=== PATIENT | female | born 1945 | race Caucasian/White ===

== ENCOUNTER → 2016-11-02 | Outpatient (CLI) | payer OTHER ==
[~2016-11-02] MED LIST: ATENOLOL PO; CALCIUM PO; CELEXA PO; SYNTHROID PO; TRAMADOL HCL50 MG PO; [UNRECOGNIZED DRUG - OTHER] PO
[2016-11-02 10:36] LABS: BASO # 0.1 10*3/uL (0.0-0.1); BASO % 0.7 % (0.0-1.0); EOS # 0.2 10*3/uL (0.0-0.4); EOS % 2.3 % (1.0-4.0); HEMATOCRIT 41.8 % (37.0-47.0); LYMPH # 3.5 10*3/uL (1.3-4.4); LYMPH % 34.2 % (27.0-41.0); MEAN CELL VOLUME 91.1 fl (81.0-99.0); MEAN CORPUSCULAR HGB 30.5 pg (27.0-31.0); MEAN CORPUSCULAR HGB CONC 33.5 g/dl (33.0-37.0); MEAN PLATELET VOLUME 8.8 fl (9.6-12.3); MONO # 0.9 10*3/uL (0.1-1.0); MONO % 8.9 % (3.0-9.0); NEUT # 5.5 10*3/uL (2.3-7.9); NEUT % 53.6 % (47.0-73.0); PLATELET COUNT AUTOMATED 265 10*3/uL (130-400); RED BLOOD COUNT 4.59 10*6/uL (4.10-5.10); RED CELL DISTRI WIDTH 12.9 % (0-14.5); WHITE BLOOD COUNT 10.3 10*3/uL (4.8-10.8)
[2016-11-02 11:10] LABS: FREE T4 1.06 ng/dl (0.76-1.46); THYROID STIM HORMONE (HS) 2.01 uIU/ml (0.358-4.75)
== END | disposition home or self-care (01) ==
LOC: LAB 09:10 → MAMMO 09:30
PROVIDERS: Family Medicine
DX: Z12.31 Encounter for screening mammogram for malignant neoplasm of breast (principal); E03.9 Hypothyroidism, unspecified; E55.9 Vitamin D deficiency, unspecified; D72.829 Elevated white blood cell count, unspecified

== ENCOUNTER → 2016-12-21 | Outpatient (CLI) | payer OTHER ==
[2016-12-21 09:16] LABS: ALBUMIN 3.6 gm/dl (3.1-4.5); ALKALINE PHOSPHATASE 73 U/L (45-117); BILIRUBIN, TOTAL 0.3 mg/dl (0.2-1.0); BUN 13 mg/dl (7-24); CARBON DIOXIDE 29 mmol/L (21-32); CHLORIDE 106 mmol/L (98-107); CHOLESTEROL 201 mg/dL (<200); CPK 114 U/L (26-192); EST GLOM FILT AFRICAN AMERICAN > 60 ml/min; FREE T4 0.81 ng/dl (0.76-1.46); GLUCOSE 111 mg/dL (65-99); HDL CHOLESTEROL 82 mg/dl (40-60); LDL CHOLESTEROL 85 mg/dL (9-159); POTASSIUM 4.1 mmol/L (3.5-5.1); SGOT/AST 19 IU/L (3-35); SGPT/ALT 32 U/L (12-78); SODIUM 144 mmol/L (136-145); TOTAL PROTEIN 7.7 gm/dL (6.4-8.2); TRIGLYCERIDES 172 mg/dl (<150); VLDL CHOLESTEROL 34 mg/dL (6-40)
== END | disposition home or self-care (01) ==
LOC: LAB 08:16
PROVIDERS: Family Medicine
DX: E78.00 Pure hypercholesterolemia, unspecified (principal); E03.9 Hypothyroidism, unspecified

== ENCOUNTER 2017-02-11 08:50 | Inpatient (IN) | payer OTHER ==
[~2017-02-11] VITALS: Ht 154.9 cm; Wt 76.2 kg
--- NOTE | ~2017-02-11 | PR ---
[place], [place] PROGRESS NOTE NAME: OSWALDO TAN [facility] #: [id number] UNIT #: [id number] ROOM: 412 DOCTOR: MOUSTAPHA TRAN MD BIRTHDATE: [birth year] DOS: SUBJECTIVE: The patient feels a lot better after the bronchoscopy. She is able to breathe better, does not have the chest tightness anymore. She still has a continued cough. OBJECTIVE: VITAL SIGNS: Blood pressure is 156/57, pulse of 76, respirations 20, temperature 98.0. LUNGS: Diminished breath sounds. A few scattered wheezes and rales heard, but much improved since yesterday. HEART: Regular. ABDOMEN: Obese, soft. EXTREMITIES: Without any edema. ASSESSMENT AND PLAN: 1. Severe persistent bronchial asthma, moderate to severe with acute exacerbation. 2. 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 3. Bronchoscopy for acute tracheobronchitis. Bronch cultures are pending. The patient is overall stable and is continuing to improve and I am hoping to discharge her over the next day or 2. We will order nebulizer for home usage. MOUSTAPHA TRAN MD CM:PNTRANS [phone] MOUSTAPHA TRAN MD 02/15/17 0033 interface
--- NOTE | ~2017-02-11 | PR ---
[place], [place] PROGRESS NOTE NAME: OSWALDO TAN [facility] #: [id number] UNIT #: [id number] ROOM: 412 DOCTOR: CHELE MONTAÑO MD,MEGHANA BIRTHDATE: [birth year] DOS: 02/15/2017 SUBJECTIVE: She has been still noted chest congestion, coughing, the resolution of the symptoms have been noted incomplete. Denies symptoms of hemoptysis. OBJECTIVE: VITAL SIGNS: For the patient which were recorded shows temperature normal, respiratory rate 20, heart rate 77, blood pressure 146/65. Pulse oxygen saturation on room air 94% saturation. HEENT: No acute change. NECK: Supple. CARDIOVASCULAR: S1, S2 audible. LUNGS: The patient was noted with expiratory wheezing was noted mild to moderately, but decreased from previous examinations gradually. ABDOMEN: Soft, nontender. LABORATORY DATA: Cultures of the bronchial washing showed light growth of yeast and normal wandy. IMPRESSION: Gradual, but slow resolution of acute exacerbation of bronchial asthma was continued. The respiratory symptoms have been improving, but not significant resolved for the patient enough at this time for home discharge on oral medications. OF TREATMENT: The patient will be recommended continued corticosteroids, bronchodilators for another 24-48 hours with close monitoring and assessment. The wheezing of patient improved. The coughing, shortness of breath, all improved. She could be switched to the oral antibiotics for the patient as well as the tapering dose of prednisone and discharge home over the weekend. MEGHANA ELAINE MD CM:PNTRANS [id number] MEGHANA MONTAÑO MD 02/16/17 0430 interface
--- NOTE | ~2017-02-11 | PR ---
[place], [place] PROGRESS NOTE NAME: OSWALDO TAN UNIT #: [id number] ROOM: 412 DOCTOR: MEGHANA CENTENO MD BIRTHDATE: [birth year] DOS: 02/13/2017 PULMONARY FOLLOWUP SUBJECTIVE: She was n.p.o. past midnight for bronchoscopy, noted severe episodic cough, remains unchanged. The wheezing of the patient was also noted shortness of breath as well. Denies symptoms of chest pain. Continue corticosteroids, bronchodilators and other treatments. OBJECTIVE: VITAL SIGNS: For the patient which were recorded showed the temperature noted as normal, respiratory rate 22, heart rate of 95-110, blood pressure 117/54-113/47. Pulse oxygen saturation of the patient recorded on 3 liters nasal cannula was 93% saturation. HEENT: Showed no new change. NECK: Supple. CARDIOVASCULAR SYSTEM: S1, S2 audible. LUNGS: The patient was noted with diffuse expiratory wheezing without any crackles. ABDOMEN: Soft, nontender. LABORATORY DATA: Blood cultures from 8th of this month for this patient, which were done for this patient, 4 sets for the patient was noted all negative. No bacterial growth rather. IMPRESSION: 1. The patient with acute exacerbation of uncomplicated moderate severe persistent bronchial asthma, moderate persistent bronchial asthma. 2. Acute severe tracheobronchitis. 3. Pulmonary nodules. 4. Persistent symptoms of cough, wheezing, now resolving with the current medical treatment. PLAN OF TREATMENT: Proceed with the bronchoscopy of the patient as planned. No other changes in treatment at this time immediately will be needed. Any treatment changes of the patient modification necessary will be done after the bronchoscopy. [place], [place] PROGRESS NOTE NAME: OSWALDO TAN UNIT #: [id number] ROOM: 412 DOCTOR: MEGHANA CENTENO MD BIRTHDATE: [birth year] MEGHANA ELAINE MD CM:PNTRANS [phone] MEGHANA MONTAÑO MD 02/14/17 0647 interface
--- NOTE | ~2017-02-11 | PR ---
[place], [place] PROGRESS NOTE NAME: OSWALDO TAN [facility] #: [id number] UNIT #: [id number] ROOM: 412 DOCTOR: MOUSTAPHA TRAN MD BIRTHDATE: [birth year] DOS: 02/13/2017 SUBJECTIVE: The patient is continuing to have shortness of breath and continues to cough and has not had any improvement at all. OBJECTIVE: VITAL SIGNS: Graphic trend shows that the patient is afebrile. Blood pressure is 144/56, pulse of 75, respirations 18, temperature 97.6. LUNGS: Diminished breath sounds, scattered wheezes. HEART: Regular. ABDOMEN: Obese, soft. EXTREMITIES: Without any edema. DIAGNOSTIC DATA: CT of the chest shows reticulonodular densities bilateral. ASSESSMENT AND PLAN: 1. Acute bronchitis, on IV antibiotics. 2. Bronchial asthma with acute exacerbation, continues to have significant bronchospasm on high dose of steroids. We will add Singulair. Dr. Dasilva plans to do a bronchoscopy today. 3. Possible interstitial lung disease as noted on a CT scan of the chest with possible pneumonia of the left lower lobe. 4. Benign hypertension, controlled with a normal echocardiogram. 5. Hypothyroidism, stable. Appreciate Dr. Dasilva's input. Discussed with the patient in detail. MOUSTAPHA TRAN MD CM:PNTRANS [phone] MOUSTAPHA TRAN MD 02/13/17 0730 interface
--- NOTE | ~2017-02-11 | CON ---
[place], [place] REPORT OF CONSULTATION NAME: OSWALDO TAN [facility] #: [id number] UNIT #: [id number] ROOM: 412 DOCTOR: MEGHANA CENTENO MD BIRTHDATE: [birth year] DOS: 02/12/2017 PULMONARY CONSULTATION EVALUATION AND MANAGEMENT NOTE The consultation requested by Dr. Susana Pineda. REASON FOR CONSULTATION: Assess the patient for ongoing abnormal respiratory symptoms. HISTORY OF PRESENT ILLNESS: A 71 years old white female known to me from the past, history of uncomplicated moderate persistent bronchial asthma, stable pulmonary nodule from the office. The patient presented to the Emergency Room for this patient and admitted to the hospital on 02/11/2017. The patient stated her symptoms started for this patient about a week ago or so. The symptoms worsened progressively for the patient in the last couple of days. The patient presented to the Emergency Room and was admitted to the hospital in February 2017. She started with having progressive chest congestion with cough. She was noted with symptoms of wheezing as well with increased shortness of breath, which occurred with mild exertional activity. She has been taking her usual prescription medications and not noted any relief of her symptoms. She has been admitted to the hospital for the patient for the medical management of acute severe exacerbation of bronchial asthma with acute bronchitis. The patient was also noted with increase of lactic acid on admission as well. The patient was seen in the office of the primary care physician, Dr. Santos and was asked to go to the hospital for the patient for hospitalization after his assessment because of the acute exacerbation of bronchial asthma appeared to be severe. REVIEW OF SYSTEMS: CONSTITUTIONAL SYMPTOMS: Noted with symptoms of fatigue and tiredness without any symptoms of fever or chills. EYES: Denies any burning, redness, or tenderness. EARS, NOSE, THROAT SYMPTOMS: No sore throat, hoarseness, otalgia, postnasal drainage. CARDIOVASCULAR SYSTEM: Denies anginal pain, edema or pain of the lower extremities. GASTROINTESTINAL SYMPTOMS: Denies dysphagia, nausea, vomiting, diarrhea, abdominal pain, hematemesis, melena, or hematochezia. GENITOURINARY SYMPTOMS: Denies dysuria, suprapubic pain, hematuria. MUSCULOSKELETAL SYMPTOMS: Denies acute joint pain, redness, or tenderness. SKIN: No lesions or rashes. CENTRAL NERVOUS SYSTEM: Denies any dizziness, headache, diplopia or syncopal episodes. Remaining systems were reviewed with the patient, they were noted all negative. PAST MEDICAL HISTORY: 1. Noted is essential hypertension. 2. History of uncomplicated moderate persistent bronchial asthma. [place], [place] REPORT OF CONSULTATION NAME: OSWALDO TAN UNIT #: [id number] ROOM: [facility] DOCTOR: MEGHANA CENTENO MD BIRTHDATE: [birth year] 3. 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 4. History of bilateral pulmonary nodules as well. 5. History of hypercholesterolemia. 6. History of hypothyroidism. 7. Generalized anxiety and depression. SOCIAL HISTORY: The patient is currently , has 2 children. Smoking noted since age of [age] years old, 1 pack of cigarettes per day until 1996. There was no history of occupation related pulmonary exposure. PAST SURGICAL HISTORY: Was noted, 1. Complete hysterectomy, 1973. 2. Carpal tunnel release bilateral for the patient. 3. Right rotator cuff surgery. 4. Partial thyroidectomy. FAMILY HISTORY: The patient's father for this patient at the age of 8484 years old, complication of prostate cancer. Mother at the age of 6262 years old from complications of uterine cancer. HOME MEDICATIONS: Noted use of Asmanex, ProAir HFA inhaler, citalopram, levothyroxine, atenolol. DRUG ALLERGY HISTORY: THE PATIENT WAS KNOWN ALLERGIES TO THE IVP DYE. PHYSICAL EXAMINATION: GENERAL: A 71 years old white female was noted excessive severe coughing for this patient several times for the patient during the assessment today. VITAL SIGNS: The height of the patient noted 5 feet 1 inch, weight of 168 pounds, BMI 31.7. The vital signs showed normal temperature, respiratory rate 18-22, heart rate of 120-81, blood pressure 160/77-181/75, pulse oxygen saturation on room air was 92% saturation. HEENT: Examination shows head was atraumatic. Eyes nonicterus. NECK: Supple. CARDIOVASCULAR SYSTEM: S1, S2 is audible. LUNGS: The patient was noted with moderate reduction of the breath sounds bilaterally with the diffuse expiratory wheezing. There were no crackles. ABDOMEN: Soft, nontender and flat. EXTREMITIES: Showed no edema, clubbing, cyanosis. CENTRAL NERVOUS SYSTEM: Cranial nerves 2-12 intact. No focal deficits. MUSCULOSKELETAL SYMPTOMS: No deformities. SKIN: No lesions or rashes. LABORATORY DATA: PT, PTT for the patient was noted as normal. Lactic acid noted 2.2 on admission, later noted 4.4. The CBC of the patient yesterday on admission, WBC count 15,000 with the remaining CBC normal. PT/PTT for the patient on 02/11/2017 was normal. CMP of the patient on 02/11/2017, BUN 18, creatinine 1.09. Lipase mildly elevated 417. ProBNP minimally elevated. CK-MB and troponin for the patient's first set noted normal yesterday. Chest x-ray of [place], [place] REPORT OF CONSULTATION NAME: OSWALDO TAN UNIT #: [id number] ROOM: [facility] DOCTOR: CHELE MONTAÑO MD,[facility] BIRTHDATE: [birth year] the patient that was done for this patient was noted with the findings of left lower lobe atelectasis for this patient. The patient had a CT scan of the chest, which was done this morning done without contrast for the patient ordered by Dr. Susana Pnieda for the patient was reviewed, history of bilateral scattered pulmonary nodules which has been noted previously remains unchanged. Some nodular density of the patient with area of scarring and atelectasis was noted in the left lung base as a new finding. IMPRESSION: 1. The patient will be currently admitted to the hospital noted with severe increased respiratory symptoms with acute exacerbation of bronchial asthma with acute bacterial . 2. Possibility of acute pneumonia for this patient would be considered in the left lower lobe with current finding of nodular infiltration. The pneumonia will be considered most likely atypical in nature for patient versus streptococcal infection with nonaspiration. 3. Previous history of nicotine abuse of the patient, which was discontinued in 1996. 4. History of hypothyroidism and others. 5. Strong suspicion of mucus impaction of major airway because of the severe symptoms. PLAN OF TREATMENT: The patient will be continued the corticosteroid for the patient, which was started by Dr. Susana Pineda. The dose will be increased for the patient to 40 mg 8 hour from 30 mg q. 8 hours. Bronchodilator will be given every 4 hours. Continue antibiotic. Use of the Mucinex as well. Flutter valve. Fiberoptic bronchoscopy of the patient with assessment and plan to be done tomorrow morning. The patient to clear the mucous impaction of the major airways. Further treatment changes will be done based on the progression of the illness. Risk and benefits of the procedure have been discussed with the patient. Current nodule infiltration/atelectasis will be monitored for the patient with followup x-rays. Thanks for allowing me to participate in the care of this patient. MEGHANA ELAINE MD CM:CONSTR:REPORT OF CONSULTATION 1148 02/13/17 0644 interface
--- NOTE | ~2017-02-11 | PR ---
[place], [place] PROGRESS NOTE NAME: OSWALDO TAN UNIT #: [id number] ROOM: 412 DOCTOR: MEGHANA CENTENO MD BIRTHDATE: [birth year] DOS: 02/14/2017 SUBJECTIVE: The patient has been noted comfortable at this time without any distress. The bronchoscopy done for the patient yesterday resulting in significant reduction in the respiratory symptoms. The patient stated he has been noted significant relief of respiratory symptoms after bronchoscopy. Coughing has been decreased. The wheezing for the patient was also decreasing. There were no symptoms of any chest pain or any abdominal pain. OBJECTIVE: VITAL SIGNS: For the patient which were recorded shows the temperature of the patient noted as normal. The respiratory rate of the patient recorded as 20, heart rate 91, blood pressure 147/79. HEENT: Examination shows head was atraumatic. Eyes nonicterus. NECK: Supple. CARDIOVASCULAR: S1, S2 is audible. LUNGS: The patient was noted with mild expiratory wheezing at the present time. ABDOMEN: Soft, nontender. EXTREMITIES: Do not show any edema, clubbing or cyanosis. LABORATORY DATA: Gram stain of the bronchial washing for the patient, which were done for this patient shows many white blood cell for this patient were noted with moderate epithelial cells, few gram-positive cocci in clusters and pairs. IMPRESSION: 1. The patient who has been currently noted with ongoing acute exacerbation of bronchial asthma. The patient acute tracheobronchitis with significant reduction and improvement. The patient was observed post-bronchoscopy for this patient at this time. 2. Acute bacterial bronchitis, which is responding to the treatment. PLAN OF TREATMENT: Reduce the Solu-Medrol dose for this patient to 40 mg b.i.d. Continue in the meantime other previous therapy, plan of management. Expected discharge the patient most likely in the home setting, oral prednisone, and antibiotics based on the final culture results will be determined. Other supportive therapy, plan and management will be continued as previously. Usual care. Further treatment changes will be done based on the progression of the illness. [place], [place] PROGRESS NOTE NAME: OSWALDO TAN UNIT #: [id number] ROOM: 412 DOCTOR: MEGHANA CENTENO MD BIRTHDATE: [birth year] MEGHANA ELAINE MD CM:ANNIE [phone] MEGHANA MONTAÑO MD 02/15/17 0254 interface
--- NOTE | ~2017-02-11 | WRIGHTHP ---
[place], [place] PATIENT HISTORY AND PHYSICAL EXAM NAME: OSWALDO TAN [facility] #: [id number] UNIT #: [id number] ROOM: 412 DOCTOR: MOUSTAPHA TRAN MD BIRTHDATE: [birth year] DOS: 02/11/2017 HISTORY OF PRESENT ILLNESS: The patient is 71 years old, comes in with complaints of difficulty breathing. The patient says for the last few days, she has not felt good. She has been tired and weak, but on Saturday and noticed that she was getting short of breath. It continued to progress and get worse and by Saturday, she could not breathe at all, so she decided to go to Dr. Santos's office, where she did receive a breathing treatment and was promptly sent to the ER. She was admitted to the hospital. She denies having any chest pains or palpitations, but she feels heavy in her chest. She also has a very dry cough and it is wet sounding, but she is unable to cough up any mucus at all. This coughing spell increases her shortness of breath. She denies having any fever or any chills. PAST MEDICAL HISTORY: Significant for; 1. Hypertension. 2. Major depression. 3. Mixed hyperlipidemia. 4. Hypothyroidism. 5. Chronic obstructive pulmonary disease. MEDICATIONS: She is on are home meds are ProAir, Symbicort, Asmanex, Spiriva, atenolol, atorvastatin, Wellbutrin, vitamin D, citalopram, levothyroxine. SOCIAL HISTORY: Nonsmoker, does not use any alcohol. She was a smoker about 20 years ago. PHYSICAL EXAMINATION: GENERAL: She is awake and alert and oriented, in some mild to moderate respiratory distress. VITAL SIGNS: Blood pressure is 168/70, pulse of 86 regular, respirations about 20, afebrile. HEENT: Unremarkable. LUNGS: Diminished breath sounds. Scattered wheezes and rhonchi heard. HEART: Regular. ABDOMEN: Obese, soft, nontender. EXTREMITIES: Without any edema. LABORATORY DATA: White blood cell count is 15.0, hemoglobin 14.9, hematocrit 43.2. Lactic acid 2.2. Comprehensive glucose 90, BUN 18, creatinine 1.09. Electrolytes were normal. ASSESSMENT AND PLAN: 1. Chest x-ray was unremarkable. The patient presents with cough and shortness of breath with underlying acute exacerbation of chronic obstructive pulmonary disease and acute hypoxic respiratory failure and acute respiratory distress syndrome. The patient has been admitted. IV steroids and breathing treatments have been ordered. The patient has a wet sounding cough, but unable to cough up any mucus and may benefit from a bronchoscopy. Dr. Dasilva has been consulted. 2. Possible left mid lung pneumonia. Chest x-ray showed some changes. [place], [place] PATIENT HISTORY AND PHYSICAL EXAM [facility]: [id number] UNIT #: [id number] ROOM: [facility] DOCTOR: MOUSTAPHA TRAN MD BIRTHDATE: [birth year] cell count is elevated. Lactic acidosis noticed. Possible early sepsis. We will go ahead and arrange for a CT of the chest. 3. Benign hypertension, poorly controlled. The patient states that her pressure was controlled at home. We will discontinue the atenolol, which could cause bronchospasm. We will add Norvasc and echocardiogram was ordered. MOUSTAPHA TRAN MD CM:HISPHYS:PATIENT HISTORY AND PHYSICAL EXAMINATION 8 5 MOUSTAPHA TRAN MD 02/12/1736 interface
--- NOTE | ~2017-02-11 | PROC NOTE ---
[place], [place] PROCEDURE NOTE NAME: OSWALDO TAN [facility] #: [id number] UNIT #: [id number] ROOM: 412 DOCTOR: CHELE MONTAÑO MD,MEGHANA BIRTHDATE: [birth year] DOS: 02/13/2017 BRONCHOSCOPY NOTE PREOPERATIVE DIAGNOSIS: Severe coughing and wheezing. POSTOPERATIVE DIAGNOSES: 1. Large impaction of the mucus plugs for the patient removed from the endobronchial tree bilaterally. 2. Finding of acute tracheobronchitis. PROCEDURE DESCRIPTION: Informed consent obtained for the patient. She was brought to the OR and placed in supine position. Conscious sedation was administered by the Anesthesia Department. After achieving appropriate sedation, airway introduced into the mouth. Bronchoscope advanced to the vocal cord and tracheal lumen. The tracheal lumen was identified and noted with moderate amount of thick mucus secretion suctioned out from the tracheal lumen. Right upper, right middle, right lower, left upper, lingula, lower lobe bronchi were all examined. All the secretions of the patient were suctioned out with the help of normal saline wash for this patient, sent for culture. There were no endobronchial obstructive lesions were noted. Procedure well tolerated by the patient without any complication of the patient during the procedure. No change in the treatment will be needed for this patient based on the current bronchoscopy procedure findings. MEGHANA ELAINE MD CM:PROCNOTE:PROCEDURE NOTE [id number] MEGHANA MONTAÑO MD
--- NOTE | ~2017-02-11 | PR ---
[place], [place] PROGRESS NOTE NAME: OSWALDO TAN [facility] #: [id number] UNIT #: [id number] ROOM: 412 DOCTOR: BLAINE FRANKLIN MD BIRTHDATE: [birth year] DOS: 02/15/2017 SUBJECTIVE: The patient is a 71-year-old female who is here with increased shortness of breath, which is improving with treatment. OBJECTIVE: VITAL SIGNS: Blood pressure 132/73, heart rate 96 beats per minute, breathing 20 times a minute, temperature 98 degrees Fahrenheit. IMPRESSION: 1. The patient with acute exacerbation of chronic obstructive pulmonary disease and tracheobronchitis showing improvement with treatment. The patient is status post bronchoscopy by Dr. Dasilva. 2. Benign essential hypertension. Blood pressure being treated and monitored. 3. Hypothyroidism. The patient is on thyroid supplements. 4. Hyperlipidemia, treated with atorvastatin. BLAINE FRANKLIN MD CM:PNTRANS [phone] BLAINE FRANKLIN MD 02/16/17 0954 interface
[2017-02-11 08:54] VITALS: BP 173/83
[2017-02-11 09:18] LABS: BASO # 0.1 10*3/uL (0.0-0.1); BASO % 0.4 % (0.0-1.0); EOS # 0.1 10*3/uL (0.0-0.4); EOS % 0.9 % (1.0-4.0); HEMATOCRIT 43.2 % (37.0-47.0); HEMOGLOBIN 14.9 g/dl (12.0-16.0); IG # 0.1 10*3/uL (0.0-0.1); LYMPH # 4.6 10*3/uL (1.3-4.4); LYMPH % 30.9 % (27.0-41.0); MEAN CORPUSCULAR HGB 30.3 pg (27.0-31.0); MEAN CORPUSCULAR HGB CONC 34.5 g/dl (33.0-37.0); MEAN PLATELET VOLUME 8.4 fl (9.6-12.3); MONO # 1.4 10*3/uL (0.1-1.0); MONO % 9.2 % (3.0-9.0); NEUT # 8.7 10*3/uL (2.3-7.9); NEUT % 58.2 % (47.0-73.0); PLATELET COUNT AUTOMATED 283 10*3/uL (130-400); RED BLOOD COUNT 4.91 10*6/uL (4.10-5.10)
[2017-02-11 09:27] LABS: PROTHROMBIN TIME 10.5 SECONDS (9.0-12.4)
[2017-02-11 09:32] LABS: ALBUMIN 3.8 gm/dl (3.1-4.5); ALKALINE PHOSPHATASE 62 U/L (45-117); BILIRUBIN, TOTAL 0.6 mg/dl (0.2-1.0); BUN 18 mg/dl (7-24); CARBON DIOXIDE 28 mmol/L (21-32); CHLORIDE 102 mmol/L (98-107); CKMB 2.6 ng/ml (0.5-3.6); CPK 141 U/L (26-192); EST GLOM FILT AFRICAN AMERICAN > 60 ml/min; GLUCOSE 90 mg/dL (65-99); MAGNESIUM 1.9 mg/dL (1.5-2.1); POTASSIUM 3.6 mmol/L (3.5-5.1); SGOT/AST 18 IU/L (3-35); SGPT/ALT 31 U/L (12-78); SODIUM 141 mmol/L (136-145); TOTAL PROTEIN 7.5 gm/dL (6.4-8.2)
[2017-02-11 09:39] LABS: C-REACTIVE PROTEIN < 0.29 MG/DL (0-0.3); TROPONIN I < 0.015 ng/ml (<0.045)
[2017-02-11 10:00] VITALS: BP 181/75
[2017-02-11 11:15] LABS: LA>2 REFLEX 2 HR DRAW NOW
[2017-02-11 11:32] LABS: LA>2 RFLX FOLLOW UP AT 2 HRS 2.1 mmol/L (0.4-2.0)
[2017-02-11] MEDS ORDERED: VITAMIN D-32000 UNIT PO (11:32)
[2017-02-11] MEDS ORDERED: SYMBICORT1 AE1 INH (11:32)
[2017-02-11] MEDS ORDERED: PREDNISONE10 MG PO (11:33)
[2017-02-11] MEDS ORDERED: ASMANEX HF100 MCG/Ac INH (11:33)
[2017-02-11] MEDS ORDERED: PROAIR HFA8.5 GM INH (11:33)
[2017-02-11 11:36] VITALS: BP 184/80
[2017-02-11] MEDS ORDERED: ASMANEX HF200 MCG/Ac INH (11:54)
[2017-02-11] MEDS ORDERED: TENORMIN50 MG PO (11:55)
[2017-02-11] MEDS ORDERED: LIPITOR10 MG PO (11:55)
[2017-02-11] MEDS ORDERED: CELEXA40 MG PO (11:56)
[2017-02-11] MEDS ORDERED: SYNTHROID RP0.088 MG PO (11:56)
[2017-02-11] MEDS ORDERED: WELLBUTRIN SR150 MG PO (11:57)
[2017-02-11] MEDS ORDERED: SPIRIVA -- 3018 MCG INH (11:57)
[2017-02-11 13:26] LABS: LA>2 REFLEX 4 HR DRAW NOW
[2017-02-11 16:00] VITALS: BP 150/66
[2017-02-11 20:00] VITALS: BP 168/68
[2017-02-12] VITALS: BP 168/77
[2017-02-12 08:00] VITALS: BP 152/68
[2017-02-12 12:00] VITALS: BP 141/70
[2017-02-12 16:00] VITALS: BP 131/71
[2017-02-12 20:00] VITALS: BP 133/87
[2017-02-13] VITALS (8 sets, daily range): BP systolic 113–166; BP diastolic 47–92
[2017-02-14] VITALS: BP 156/57
[2017-02-14] MEDS ORDERED: PREDNISONE5 MG PO (07:48)
[2017-02-14] MEDS ORDERED: NEBULIZER (07:48)
[2017-02-14] MEDS ORDERED: CEFUROXIME AXE250 MG PO (07:48)
[2017-02-14] MEDS ORDERED: AMLODIPINE BESY1 TAB PO (07:48)
[2017-02-14] MEDS ORDERED: MONTELUKAST SOD10 MG PO (07:48)
[2017-02-14] MEDS ORDERED: DUONEB 3 MG/3 ML3 M1 INH (07:49)
[2017-02-14 08:00] VITALS: BP 162/71
[2017-02-14 12:00] VITALS: BP 147/79
[2017-02-14 16:00] VITALS: BP 147/63
[2017-02-14 16:10] LABS: ACID FAST SPEC PROCESSING Concentration (.)
[2017-02-14 20:00] VITALS: BP 152/61
[2017-02-15] VITALS: BP 154/67
[2017-02-15 08:00] VITALS: BP 171/71
[2017-02-15 12:00] VITALS: BP 146/65
[2017-02-15 16:00] VITALS: BP 132/73
[2017-02-15 20:00] VITALS: BP 124/98
[2017-02-16] VITALS: BP 167/80
[2017-02-16 08:00] VITALS: BP 162/82
[2017-02-16 12:00] VITALS: BP 145/73
== END 2017-02-16 14:18 | disposition home or self-care (01) | DRG 871 ==
LOC: ED 08:50 → EDHOLD 10:13 → 4E 10:13
PROVIDERS: Emergency Medicine; Internal Medicine Critical Care Medicine
PROC: 0BC18ZZ Extirpation of Matter from Trachea, Via Natural or Artificial Opening Endoscopic (ICD-10-PCS; principal; 2017-02-13)
PROC: 0BC88ZZ Extirpation of Matter from Left Upper Lobe Bronchus, Via Natural or Artificial Opening Endoscopic (ICD-10-PCS; principal; 2017-02-13)
PROC: 0BC68ZZ Extirpation of Matter from Right Lower Lobe Bronchus, Via Natural or Artificial Opening Endoscopic (ICD-10-PCS; principal; 2017-02-13)
PROC: 0BC48ZZ Extirpation of Matter from Right Upper Lobe Bronchus, Via Natural or Artificial Opening Endoscopic (ICD-10-PCS; principal; 2017-02-13)
PROC: 0BCB8ZZ Extirpation of Matter from Left Lower Lobe Bronchus, Via Natural or Artificial Opening Endoscopic (ICD-10-PCS; principal; 2017-02-13)
PROC: 0BC58ZZ Extirpation of Matter from Right Middle Lobe Bronchus, Via Natural or Artificial Opening Endoscopic (ICD-10-PCS; principal; 2017-02-13)
PROC: 0BC98ZZ Extirpation of Matter from Lingula Bronchus, Via Natural or Artificial Opening Endoscopic (ICD-10-PCS; principal; 2017-02-13)
DX: A41.9 Sepsis, unspecified organism (principal); J18.9 Pneumonia, unspecified organism; J96.01 Acute respiratory failure with hypoxia; J84.9 Interstitial pulmonary disease, unspecified; J44.0 Chronic obstructive pulmonary disease with (acute) lower respiratory infection; J45.51 Severe persistent asthma with (acute) exacerbation; J44.1 Chronic obstructive pulmonary disease with (acute) exacerbation; I10 Essential (primary) hypertension; F32.9 Major depressive disorder, single episode, unspecified; E78.2 Mixed hyperlipidemia; E03.9 Hypothyroidism, unspecified; E66.9 Obesity, unspecified; R91.8 Other nonspecific abnormal finding of lung field; J20.8 Acute bronchitis due to other specified organisms; F41.1 Generalized anxiety disorder; E78.00 Pure hypercholesterolemia, unspecified; Z68.31 Body mass index [BMI] 31.0-31.9, adult; Z90.710 Acquired absence of both cervix and uterus; Z91.041 Radiographic dye allergy status; Z91.013 Allergy to seafood; Z80.49 Family history of malignant neoplasm of other genital organs

== ENCOUNTER → 2017-04-08 | Outpatient (CLI) | payer OTHER ==
[~2017-04-08] MED LIST changes: +AMLODIPINE BESY1 TAB PO; +ASMANEX HF100 MCG/Ac INH; +ASMANEX HF200 MCG/Ac INH; +CEFUROXIME AXE250 MG PO; +CELEXA40 MG PO; +DUONEB 3 MG/3 ML3 M1 INH; +LIPITOR10 MG PO; +MONTELUKAST SOD10 MG PO; +NEBULIZER; +PREDNISONE10 MG PO; +PREDNISONE5 MG PO; +PROAIR HFA8.5 GM INH; +SPIRIVA -- 3018 MCG INH; +SYMBICORT1 AE1 INH; +SYNTHROID RP0.088 MG PO; +TENORMIN50 MG PO; +VITAMIN D-32000 UNIT PO; +WELLBUTRIN SR150 MG PO
[2017-04-08 08:59] LABS: CHLORIDE 103 mmol/L (98-107); POTASSIUM 3.9 mmol/L (3.5-5.1); SODIUM 141 mmol/L (136-145)
[2017-04-08 09:12] LABS: ALBUMIN 3.6 gm/dl (3.1-4.5); ALKALINE PHOSPHATASE 72 U/L (45-117); BILIRUBIN, TOTAL 0.5 mg/dl (0.2-1.0); BUN 22 mg/dl (7-24); CARBON DIOXIDE 30 mmol/L (21-32); CHOLESTEROL 196 mg/dL (<200); CPK 85 U/L (26-192); EST GLOM FILT AFRICAN AMERICAN > 60 ml/min; GLUCOSE 136 mg/dL (65-99); HDL CHOLESTEROL 56 mg/dl (40-60); LDL CHOLESTEROL 96 mg/dL (9-159); SGOT/AST 16 IU/L (3-35); SGPT/ALT 24 U/L (12-78); TOTAL PROTEIN 7.3 gm/dL (6.4-8.2); TRIGLYCERIDES 218 mg/dl (<150); VLDL CHOLESTEROL 44 mg/dL (6-40)
== END | disposition home or self-care (01) ==
LOC: LAB 08:09
PROVIDERS: Family Medicine
DX: E78.00 Pure hypercholesterolemia, unspecified (principal)

== ENCOUNTER → 2017-05-31 | Outpatient (CLI) | payer OTHER | END | disposition home or self-care (01) | LOC: LAB 08:22 | DX: E74.9 Disorder of carbohydrate metabolism, unspecified (principal); R73.09 Other abnormal glucose ==

== ENCOUNTER → 2017-07-29 | Outpatient (CLI) | payer OTHER ==
[2017-07-29 09:12] LABS: ALBUMIN 3.7 gm/dl (3.1-4.5); BUN 22 mg/dl (7-24); CHLORIDE 104 mmol/L (98-107); POTASSIUM 3.7 mmol/L (3.5-5.1); SODIUM 141 mmol/L (136-145)
[2017-07-29 09:15] LABS: ALKALINE PHOSPHATASE 79 U/L (45-117); CHOLESTEROL 279 mg/dL (<200); CPK 109 U/L (26-192); CREATININE 0.83 mg/dL (0.55-1.02); HDL CHOLESTEROL 70 mg/dl (40-60); LDL CHOLESTEROL 175 mg/dL (9-159); SGOT/AST 15 IU/L (3-35); SGPT/ALT 23 U/L (12-78); TRIGLYCERIDES 169 mg/dl (<150); VLDL CHOLESTEROL 34 mg/dL (6-40)
== END | disposition home or self-care (01) ==
LOC: LAB 08:11
PROVIDERS: Family Medicine
DX: E78.00 Pure hypercholesterolemia, unspecified (principal); I10 Essential (primary) hypertension; K21.9 Gastro-esophageal reflux disease without esophagitis

== ENCOUNTER → 2017-09-04 | Outpatient (CLI) | payer OTHER | END | disposition home or self-care (01) | LOC: CT 09-02 10:00 | DX: R91.8 Other nonspecific abnormal finding of lung field (principal); Z90.710 Acquired absence of both cervix and uterus ==

== ENCOUNTER → 2017-10-30 | Outpatient (CLI) | payer OTHER ==
[2017-10-30 08:41] LABS: ALBUMIN 3.9 gm/dl (3.1-4.5); ALKALINE PHOSPHATASE 80 U/L (45-117); BUN 23 mg/dl (7-24); CHLORIDE 104 mmol/L (98-107); CHOLESTEROL 209 mg/dL (<200); CPK 111 U/L (26-192); CREATININE 0.95 mg/dL (0.55-1.02); HDL CHOLESTEROL 71 mg/dl (40-60); LDL CHOLESTEROL 102 mg/dL (9-159); POTASSIUM 4.3 mmol/L (3.5-5.1); SGOT/AST 17 IU/L (3-35); SGPT/ALT 23 U/L (12-78); SODIUM 140 mmol/L (136-145); TOTAL PROTEIN 7.5 gm/dL (6.4-8.2); TRIGLYCERIDES 179 mg/dl (<150); VLDL CHOLESTEROL 36 mg/dL (6-40)
== END | disposition home or self-care (01) ==
LOC: LAB 07:50
PROVIDERS: Family Medicine
DX: E78.00 Pure hypercholesterolemia, unspecified (principal)

== ENCOUNTER → 2017-11-20 | Outpatient (CLI) | payer OTHER ==
[2017-11-20 09:10] LABS: FREE T4 1.3 ng/dl (0.76-1.46); THYROID STIM HORMONE (HS) 0.74 uIU/ml (0.358-4.75)
== END | disposition home or self-care (01) ==
LOC: LAB 08:00
PROVIDERS: Family Medicine
DX: E03.9 Hypothyroidism, unspecified (principal)

== ENCOUNTER → 2018-03-10 | Outpatient (CLI) | payer OTHER ==
[2018-03-10 09:39] LABS: CREATININE 1.1 mg/dL (0.55-1.02); POTASSIUM 3.9 mmol/L (3.5-5.1); TOTAL PROTEIN 7.5 gm/dL (6.4-8.2)
== END | disposition home or self-care (01) ==
LOC: LAB 08:12
PROVIDERS: Family Medicine
DX: I10 Essential (primary) hypertension (principal); E78.00 Pure hypercholesterolemia, unspecified; F41.1 Generalized anxiety disorder; E74.09 Other glycogen storage disease

== ENCOUNTER → 2018-03-12 | Outpatient (CLI) | payer OTHER | END | disposition home or self-care (01) | LOC: RAD 14:31 | DX: I10 Essential (primary) hypertension (principal); R06.2 Wheezing; Z87.891 Personal history of nicotine dependence ==

== ENCOUNTER → 2018-09-01 | Outpatient (CLI) | payer OTHER | END | disposition home or self-care (01) | LOC: RAD 10:25 | DX: M51.06 Intervertebral disc disorders with myelopathy, lumbar region (principal); M16.0 Bilateral primary osteoarthritis of hip ==

== ENCOUNTER → 2018-09-02 | Outpatient (CLI) | payer OTHER | END | disposition home or self-care (01) | LOC: CT 10:34 | DX: R91.8 Other nonspecific abnormal finding of lung field (principal); L13.9 Bullous disorder, unspecified; I25.10 Atherosclerotic heart disease of native coronary artery without angina pectoris; Z90.710 Acquired absence of both cervix and uterus ==

== ENCOUNTER → 2018-09-10 | Outpatient (CLI) | payer OTHER ==
[2018-09-10 11:02] LABS: HEMATOCRIT 39.8 % (37.0-47.0); HEMOGLOBIN 13.3 g/dl (12.0-16.0); MEAN CELL VOLUME 88.6 fl (81.0-99.0); MEAN CORPUSCULAR HGB 29.6 pg (27.0-31.0); MEAN CORPUSCULAR HGB CONC 33.4 g/dl (33.0-37.0); MEAN PLATELET VOLUME 8.9 fl (9.6-12.3); RED BLOOD COUNT 4.49 10*6/uL (4.10-5.10); RED CELL DISTRI WIDTH 13.1 % (0-14.5); WHITE BLOOD COUNT 10.1 10*3/uL (4.8-10.8)
[2018-09-10 11:14] LABS: ALBUMIN 3.7 gm/dl (3.1-4.5); ALKALINE PHOSPHATASE 68 U/L (45-117); BUN 22 mg/dl (7-24); CHLORIDE 108 mmol/L (98-107); CHOLESTEROL 190 mg/dL (<200); CREATININE 0.98 mg/dL (0.55-1.02); FREE T4 0.94 ng/dl (0.76-1.46); HDL CHOLESTEROL 69 mg/dl (40-60); LDL CHOLESTEROL 96 mg/dL (9-159); POTASSIUM 3.7 mmol/L (3.5-5.1); SGOT/AST 16 IU/L (3-35); SGPT/ALT 22 U/L (12-78); SODIUM 141 mmol/L (136-145); TOTAL PROTEIN 7.2 gm/dL (6.4-8.2); TRIGLYCERIDES 125 mg/dl (<150); VLDL CHOLESTEROL 25 mg/dL (6-40)
[2018-09-10 11:20] LABS: THYROID STIM HORMONE (HS) 0.235 uIU/ml (0.358-4.75)
== END | disposition home or self-care (01) ==
LOC: LAB 09:57
PROVIDERS: Family Medicine
DX: I10 Essential (primary) hypertension (principal); E55.9 Vitamin D deficiency, unspecified; E78.00 Pure hypercholesterolemia, unspecified; E03.9 Hypothyroidism, unspecified; M17.9 Osteoarthritis of knee, unspecified; M47.896 Other spondylosis, lumbar region

== ENCOUNTER → 2018-12-02 | Outpatient (CLI) | payer OTHER ==
[~2018-12-02] MED LIST changes: +'TENORMIN50 MG PO; +AMLODIPINE BESYL5 MG PO; +DOXYCYCLINE100 MG PO; +LEVOFLOXACIN500 MG PO; +LEVOTHYROXINE100 MC1 PO; +PROVENTIL HFA6.7 GM INH; +SINGULAIR10 M1 PO
== END | disposition home or self-care (01) ==
LOC: RAD 14:12
DX: J44.9 Chronic obstructive pulmonary disease, unspecified (principal); R06.2 Wheezing

== ENCOUNTER → 2019-02-26 | Outpatient (CLI) | payer OTHER ==
[2019-02-26 11:31] LABS: HEMATOCRIT 38.8 % (37.0-47.0); HEMOGLOBIN 12.6 g/dl (12.0-16.0); MEAN CELL VOLUME 92.2 fl (81.0-99.0); MEAN CORPUSCULAR HGB 29.9 pg (27.0-31.0); MEAN CORPUSCULAR HGB CONC 32.5 g/dl (33.0-37.0); RED BLOOD COUNT 4.21 10*6/uL (4.10-5.10); RED CELL DISTRI WIDTH 14.5 % (0-14.5); WHITE BLOOD COUNT 8.6 10*3/uL (4.8-10.8)
[2019-02-26 11:55] LABS: ALBUMIN 3.6 gm/dl (3.1-4.5); ALKALINE PHOSPHATASE 70 U/L (45-117); BUN 19 mg/dl (7-24); CHLORIDE 108 mmol/L (98-107); SGOT/AST 17 IU/L (3-35); SGPT/ALT 22 U/L (12-78); SODIUM 142 mmol/L (136-145)
== END | disposition home or self-care (01) ==
LOC: LAB 10:30
PROVIDERS: Family Medicine
DX: E55.9 Vitamin D deficiency, unspecified (principal); E78.00 Pure hypercholesterolemia, unspecified; M25.50 Pain in unspecified joint; R06.02 Shortness of breath

== ENCOUNTER → 2019-07-31 | Outpatient (CLI) | payer OTHER ==
[2019-07-31 08:22] LABS: HEMATOCRIT 39.9 % (37.0-47.0); HEMOGLOBIN 13.3 g/dl (12.0-16.0); MEAN CELL VOLUME 89.1 fl (81.0-99.0); MEAN CORPUSCULAR HGB 29.7 pg (27.0-31.0); MEAN CORPUSCULAR HGB CONC 33.3 g/dl (33.0-37.0); MEAN PLATELET VOLUME 8.8 fl (9.6-12.3); RED BLOOD COUNT 4.48 10*6/uL (4.10-5.10); RED CELL DISTRI WIDTH 13.2 % (0-14.5); WHITE BLOOD COUNT 12.4 10*3/uL (4.8-10.8)
[2019-07-31 08:59] LABS: ALBUMIN 3.7 gm/dl (3.1-4.5); CREATININE 1.18 mg/dL (0.55-1.02); POTASSIUM 3.6 mmol/L (3.5-5.1); TOTAL PROTEIN 7.5 gm/dL (6.4-8.2)
[2019-07-31 09:07] LABS: FREE T4 0.91 ng/dl (0.76-1.46); THYROID STIM HORMONE (HS) 0.833 uIU/ml (0.358-4.75)
== END | disposition home or self-care (01) ==
LOC: LAB 07:48
PROVIDERS: Family Medicine
DX: R53.83 Other fatigue (principal); R06.02 Shortness of breath; J45.909 Unspecified asthma, uncomplicated; Z87.891 Personal history of nicotine dependence

== ENCOUNTER → 2019-08-25 | Outpatient (CLI) | payer OTHER | END | disposition home or self-care (01) | LOC: US 12:03 | DX: I65.23 Occlusion and stenosis of bilateral carotid arteries (principal); I10 Essential (primary) hypertension ==

== ENCOUNTER → 2019-09-07 | Outpatient (CLI) | payer OTHER | END | disposition home or self-care (01) | LOC: CT 10:00 | DX: I25.10 Atherosclerotic heart disease of native coronary artery without angina pectoris (principal); I10 Essential (primary) hypertension; R91.8 Other nonspecific abnormal finding of lung field ==

== ENCOUNTER → 2019-09-10 | Outpatient (CLI) | payer OTHER | END | disposition home or self-care (01) | LOC: MRI 00:09 | DX: I65.23 Occlusion and stenosis of bilateral carotid arteries (principal) ==

== ENCOUNTER → 2019-11-02 | Outpatient (CLI) | payer OTHER ==
[2019-11-02 11:14] LABS: ALBUMIN 3.5 gm/dl (3.1-4.5); CREATININE 1.27 mg/dL (0.55-1.02); POTASSIUM 3.8 mmol/L (3.5-5.1); TOTAL PROTEIN 6.8 gm/dL (6.4-8.2)
[2019-11-02 11:18] LABS: HEMATOCRIT 36.9 % (37.0-47.0); HEMOGLOBIN 12.2 g/dl (12.0-16.0); MEAN CELL VOLUME 88.7 fl (81.0-99.0); MEAN CORPUSCULAR HGB 29.3 pg (27.0-31.0); MEAN CORPUSCULAR HGB CONC 33.1 g/dl (33.0-37.0); MEAN PLATELET VOLUME 9.1 fl (9.6-12.3); RED BLOOD COUNT 4.16 10*6/uL (4.10-5.10); RED CELL DISTRI WIDTH 13.4 % (0-14.5)
[2019-11-02 11:37] LABS: FREE T4 1.15 ng/dl (0.76-1.46)
== END | disposition home or self-care (01) ==
LOC: LAB 10:05
PROVIDERS: Family Medicine
DX: E03.9 Hypothyroidism, unspecified (principal); I10 Essential (primary) hypertension; I65.29 Occlusion and stenosis of unspecified carotid artery

== ENCOUNTER → 2019-12-14 | Outpatient (CLI) | payer OTHER | END | disposition home or self-care (01) | LOC: RAD 07:41 | DX: R07.9 Chest pain, unspecified (principal); R06.02 Shortness of breath ==

== ENCOUNTER 2020-01-22 14:34 | Emergency (ER) | payer OTHER ==
[2020-01-22 15:25] LABS: BASO % 0.5 % (0.0-1.0); EOS # 0.1 10*3/uL (0.0-0.4); EOS % 1.6 % (1.0-4.0); HEMATOCRIT 39.2 % (37.0-47.0); LYMPH # 2.7 10*3/uL (1.3-4.4); LYMPH % 30.1 % (27.0-41.0); MEAN CELL VOLUME 87.7 fl (81.0-99.0); MEAN CORPUSCULAR HGB 29.1 pg (27.0-31.0); MEAN CORPUSCULAR HGB CONC 33.2 g/dl (33.0-37.0); MEAN PLATELET VOLUME 8.2 fl (9.6-12.3); MONO # 0.9 10*3/uL (0.1-1.0); MONO % 10.5 % (3.0-9.0); NEUT # 5.1 10*3/uL (2.3-7.9); NEUT % 57.1 % (47.0-73.0); PLATELET COUNT AUTOMATED 328 10*3/uL (130-400); RED BLOOD COUNT 4.47 10*6/uL (4.10-5.10); RED CELL DISTRI WIDTH 13.4 % (0-14.5); WHITE BLOOD COUNT 8.9 10*3/uL (4.8-10.8)
[2020-01-22 15:35] LABS: ACT PARTIAL THROMBO TIME 26.5 SECONDS (20.0-32.1)
[2020-01-22 15:41] LABS: ALBUMIN 3.5 gm/dl (3.1-4.5); CREATININE 1.1 mg/dL (0.55-1.02); TOTAL PROTEIN 7.4 gm/dL (6.4-8.2)
[2020-01-22 15:54] LABS: BACTERIA TRACE; BILIRUBIN NEGATIVE (NEGATIVE); BLOOD NEGATIVE (NEGATIVE); CLARITY CLEAR (CLEAR); COLOR YELLOW (YELLOW); GLUCOSE NEGATIVE (NEGATIVE); KETONE NEGATIVE (NEGATIVE); LEUKO ESTERASE TRACE (NEGATIVE); NITRITE NEGATIVE (NEGATIVE); RBC 0-2 rbc/hpf (0-2); SPECIFIC GRAVITY 1.005 (1.005-1.030); UROBILINOGEN 0.2 E.U./dl (0.2-1.0)
== END 2020-01-22 17:50 ==
LOC: ED 14:34
PROVIDERS: Emergency Medicine
DX: R10.84 Generalized abdominal pain (principal); J45.909 Unspecified asthma, uncomplicated; I10 Essential (primary) hypertension; E03.9 Hypothyroidism, unspecified; M19.90 Unspecified osteoarthritis, unspecified site; J44.9 Chronic obstructive pulmonary disease, unspecified; Z91.041 Radiographic dye allergy status; Z91.040 Latex allergy status; Z79.2 Long term (current) use of antibiotics; Z79.899 Other long term (current) drug therapy

== ENCOUNTER → 2020-06-06 | Outpatient (CLI) | payer OTHER | END | disposition home or self-care (01) | LOC: RAD 00:54 | PROVIDERS: ATTEND Obstetrics & Gynecology | DX: K57.30 Diverticulosis of large intestine without perforation or abscess without bleeding (principal); N82.3 Fistula of vagina to large intestine ==

== ENCOUNTER → 2020-06-09 | Outpatient (CLI) | payer OTHER ==
[2020-06-09 08:00] LABS: MEAN CELL VOLUME 85.9 fl (81.0-99.0); MEAN CORPUSCULAR HGB 28.4 pg (27.0-31.0); MEAN CORPUSCULAR HGB CONC 33.1 g/dl (33.0-37.0); MEAN PLATELET VOLUME 8.5 fl (9.6-12.3); RED BLOOD COUNT 4.54 10*6/uL (4.10-5.10); RED CELL DISTRI WIDTH 13.5 % (0-14.5); WHITE BLOOD COUNT 6.9 10*3/uL (4.8-10.8)
[2020-06-09 08:20] LABS: ALBUMIN 3.5 gm/dl (3.1-4.5); POTASSIUM 4.1 mmol/L (3.5-5.1)
[2020-06-09 08:22] LABS: CREATININE 1.15 mg/dL (0.55-1.02)
== END | disposition home or self-care (01) ==
LOC: LAB 07:39
PROVIDERS: ATTEND Family Medicine
DX: K21.9 Gastro-esophageal reflux disease without esophagitis (principal); I10 Essential (primary) hypertension; E78.00 Pure hypercholesterolemia, unspecified; E55.9 Vitamin D deficiency, unspecified

== ENCOUNTER → 2020-06-16 | Outpatient (CLI) | payer OTHER | END | disposition home or self-care (01) | LOC: RAD 13:48 | PROVIDERS: ATTEND Family Medicine | DX: R07.9 Chest pain, unspecified (principal); R06.02 Shortness of breath ==

== ENCOUNTER → 2020-06-20 | Outpatient (CLI) | payer OTHER | END | disposition home or self-care (01) | LOC: COVID19 09:37 | PROVIDERS: ATTEND Family Medicine | DX: R06.02 Shortness of breath (principal); Z20.828 Contact with and (suspected) exposure to other viral communicable diseases ==

== ENCOUNTER → 2020-09-19 | Outpatient (CLI) | payer OTHER | END | disposition home or self-care (01) | LOC: RAD 10:30 | PROVIDERS: ATTEND Family Medicine | DX: M81.0 Age-related osteoporosis without current pathological fracture (principal) ==

== ENCOUNTER → 2021-08-01 | Outpatient (CLI) | payer OTHER | END | disposition home or self-care (01) | LOC: RESCLI 03:58 | PROVIDERS: ATTEND Emergency Medicine | DX: I10 Essential (primary) hypertension (principal); J44.9 Chronic obstructive pulmonary disease, unspecified; E78.5 Hyperlipidemia, unspecified; E03.9 Hypothyroidism, unspecified; K21.9 Gastro-esophageal reflux disease without esophagitis; I65.23 Occlusion and stenosis of bilateral carotid arteries; M81.0 Age-related osteoporosis without current pathological fracture; F32.9 Major depressive disorder, single episode, unspecified; Z91.041 Radiographic dye allergy status; Z87.891 Personal history of nicotine dependence; Z90.710 Acquired absence of both cervix and uterus; Z98.890 Other specified postprocedural states; Z79.82 Long term (current) use of aspirin; Z79.899 Other long term (current) drug therapy ==

== ENCOUNTER → 2022-02-02 | Outpatient (CLI) | payer OTHER | END | disposition home or self-care (01) | LOC: RESCLI 01:48 | PROVIDERS: ATTEND Internal Medicine | DX: R06.02 Shortness of breath (principal); J45.41 Moderate persistent asthma with (acute) exacerbation; I10 Essential (primary) hypertension; E78.5 Hyperlipidemia, unspecified; K21.9 Gastro-esophageal reflux disease without esophagitis; M81.0 Age-related osteoporosis without current pathological fracture; F32.9 Major depressive disorder, single episode, unspecified; E03.9 Hypothyroidism, unspecified; Z88.8 Allergy status to other drugs, medicaments and biological substances; Z87.891 Personal history of nicotine dependence; Z90.710 Acquired absence of both cervix and uterus; Z79.82 Long term (current) use of aspirin; Z79.899 Other long term (current) drug therapy ==

== ENCOUNTER → 2022-06-14 | Outpatient (CLI) | payer OTHER | END | disposition home or self-care (01) | LOC: RESCLI 00:07 | PROVIDERS: ATTEND Family Medicine | DX: J45.41 Moderate persistent asthma with (acute) exacerbation (principal); M81.0 Age-related osteoporosis without current pathological fracture; I10 Essential (primary) hypertension; F32.9 Major depressive disorder, single episode, unspecified; K21.9 Gastro-esophageal reflux disease without esophagitis; E03.9 Hypothyroidism, unspecified; E78.5 Hyperlipidemia, unspecified; Z79.899 Other long term (current) drug therapy; Z88.8 Allergy status to other drugs, medicaments and biological substances; Z90.710 Acquired absence of both cervix and uterus; Z79.82 Long term (current) use of aspirin ==

== ENCOUNTER → 2022-12-13 | Outpatient (CLI) | payer OTHER | END | disposition home or self-care (01) | LOC: RESCLI 01:03 | PROVIDERS: ATTEND Internal Medicine | DX: M81.0 Age-related osteoporosis without current pathological fracture (principal); K21.9 Gastro-esophageal reflux disease without esophagitis; F32.9 Major depressive disorder, single episode, unspecified; E03.9 Hypothyroidism, unspecified; E78.5 Hyperlipidemia, unspecified; J45.909 Unspecified asthma, uncomplicated; Z98.890 Other specified postprocedural states; Z88.8 Allergy status to other drugs, medicaments and biological substances; Z87.891 Personal history of nicotine dependence; Z82.49 Family history of ischemic heart disease and other diseases of the circulatory system; Z90.710 Acquired absence of both cervix and uterus; Z79.899 Other long term (current) drug therapy ==

== ENCOUNTER → 2023-12-27 | Outpatient (CLI) | payer OTHER | END | disposition home or self-care (01) | LOC: CT 01:33 | PROVIDERS: ATTEND Family Medicine | DX: K57.30 Diverticulosis of large intestine without perforation or abscess without bleeding (principal); K44.9 Diaphragmatic hernia without obstruction or gangrene; M47.816 Spondylosis without myelopathy or radiculopathy, lumbar region; M48.56XA Collapsed vertebra, not elsewhere classified, lumbar region, initial encounter for fracture; M43.8X6 Other specified deforming dorsopathies, lumbar region; R91.1 Solitary pulmonary nodule; M16.0 Bilateral primary osteoarthritis of hip; I70.0 Atherosclerosis of aorta; I25.10 Atherosclerotic heart disease of native coronary artery without angina pectoris; Z90.710 Acquired absence of both cervix and uterus ==

== ENCOUNTER → 2024-01-10 | Outpatient (CLI) | payer MEDICARE | END | disposition home or self-care (01) | LOC: CT 00:36 | PROVIDERS: ATTEND Internal Medicine Critical Care Medicine | DX: R91.8 Other nonspecific abnormal finding of lung field (principal); J45.40 Moderate persistent asthma, uncomplicated; D14.31 Benign neoplasm of right bronchus and lung; Z86.16 Personal history of COVID-19; Z68.27 Body mass index [BMI] 27.0-27.9, adult; Z87.891 Personal history of nicotine dependence ==

== ENCOUNTER → 2024-03-03 | Outpatient (CLI) | payer MEDICARE | END | disposition home or self-care (01) | LOC: RESCLI 00:54 | PROVIDERS: ATTEND Internal Medicine | DX: I10 Essential (primary) hypertension (principal); M81.0 Age-related osteoporosis without current pathological fracture; F32.9 Major depressive disorder, single episode, unspecified; K21.9 Gastro-esophageal reflux disease without esophagitis; E03.9 Hypothyroidism, unspecified; J45.909 Unspecified asthma, uncomplicated; G62.9 Polyneuropathy, unspecified; Z79.899 Other long term (current) drug therapy; Z88.8 Allergy status to other drugs, medicaments and biological substances; Z98.890 Other specified postprocedural states ==

== ENCOUNTER 2024-12-11 12:01 | Inpatient (IN) | payer MEDICARE ==
[2024-12-11] VITALS (7 sets, daily range): BP systolic 134–168; BP diastolic 46–73
[~2024-12-11] VITALS: Ht 154.9 cm; Wt 63.2 kg
[2024-12-11] MEDS ORDERED: MAGNESIUM SULFATE 50 ML IV ONE (12:05)
[2024-12-11] MEDS ORDERED: Albuterol Sulfate 2.5 MG/3 ML VIAL NEB ONE (12:05)
[2024-12-11] MEDS ORDERED: CITALOPRAM40 MG PO (12:50)
[2024-12-11] MEDS ORDERED: PRAVASTATIN SOD40 MG PO (12:50)
[2024-12-11] MEDS ORDERED: BUSPAR5 MG PO (12:50)
[2024-12-11 12:51] LABS: HEMATOCRIT 24.8 % (37.0-47.0); MEAN CELL VOLUME 72.1 fl (81.0-99.0); MEAN CORPUSCULAR HGB 20.6 pg (27.0-31.0); MEAN CORPUSCULAR HGB CONC 28.6 g/dl (33.0-37.0); MEAN PLATELET VOLUME 8.2 fl (9.6-12.3); PLATELET COUNT AUTOMATED 412 10*3/uL (130-400); RED BLOOD COUNT 3.44 10*6/uL (4.10-5.10); RED CELL DISTRI WIDTH 16.5 % (0-14.5); WHITE BLOOD COUNT 16.8 10*3/uL (4.8-10.8)
[2024-12-11] MEDS ORDERED: PEPCID40 MG PO (12:51)
[2024-12-11] MEDS ORDERED: VALSARTAN160 MG PO (12:51)
[2024-12-11] MEDS ORDERED: BUPROPION HYDR150 M3 PO (12:51)
[2024-12-11 12:59] LABS: MANUAL DIFF REFLEX YES
[2024-12-11 13:16] LABS: POTASSIUM 3.2 mmol/L (3.4-5.1)
[2024-12-11 13:19] LABS: MICROCYTOSIS MODERATE; PLATELET SUFFICIENCY HIGH (NORMAL); POLYCHROMASIA SLIGHT; TOTAL CELLS COUNTED 100 #CELLS
[2024-12-11] MEDS ORDERED: cefTRIAXone Sodium 1 GM/10 ML SYR IV ONE (13:40)
[2024-12-11] MEDS ORDERED: AZITHROMYCIN 250 ML IV ONE (13:40)
[2024-12-11] MEDS ORDERED: SODIUM CHLORIDE 0.9% 500 ML IV ONE (13:40)
[2024-12-11 14:48] LABS: ARTERIAL BLOOD GAS PO2 150.5 mmHg (83.0-108.0)
[2024-12-11 14:49] LABS: ABG BASE EXCESS -3.6 mmol/L (-2.0-3.0)
[2024-12-11 14:52] LABS: ARTERIAL BLOOD GAS PH 7.596 (7.350-7.450)
[2024-12-11] MEDS ORDERED: LORazepam 0.5 MG TAB PO PRN (15:45)
[2024-12-11] MEDS ORDERED: Hydrocortisone Sodium Succin 250 MG/2 ML VIAL IV ONE (16:00)
[2024-12-11] MEDS ORDERED: Doxycycline Hyclate 100 MG TAB PO SCH (17:00)
[2024-12-11] MEDS ORDERED: Albuterol Sulfate 2.5 MG/3 ML VIAL NEB SCH (17:00)
[2024-12-11] MEDS ORDERED: cefTRIAXone Sodium 10 ML IV ONE (17:00)
[2024-12-11] MEDS ORDERED: SODIUM CHLORIDE 0.9% 100 ML BAG IV ONE (18:55)
[2024-12-11] MEDS ORDERED: Iodixanol 320 100 ML VIAL IV ONE (18:55)
[2024-12-11] MEDS ORDERED: diphenhydrAMINE hydrochloride 50 MG/ML VIAL IV ONE (19:00)
[2024-12-11] MEDS ORDERED: methylPREDNISolone sod succ 40 MG VIAL IV SCH (22:00)
[2024-12-11] MEDS ORDERED: Enoxaparin Sodium 40 MG/0.4 ML SYR SC SCH (22:00)
[2024-12-12] VITALS (10 sets, daily range): BP systolic 103–138; BP diastolic 34–58
[2024-12-12 05:09] LABS: POTASSIUM 4.2 mmol/L (3.4-5.1)
[2024-12-12 06:57] LABS: HEMATOCRIT 22.5 % (37.0-47.0); MEAN CELL VOLUME 70.8 fl (81.0-99.0); MEAN CORPUSCULAR HGB 20.4 pg (27.0-31.0); MEAN CORPUSCULAR HGB CONC 28.9 g/dl (33.0-37.0); MEAN PLATELET VOLUME 8.4 fl (9.6-12.3); PLATELET COUNT AUTOMATED 370 10*3/uL (130-400); RED BLOOD COUNT 3.18 10*6/uL (4.10-5.10); RED CELL DISTRI WIDTH 16.7 % (0-14.5); WHITE BLOOD COUNT 6.2 10*3/uL (4.8-10.8)
[2024-12-12 07:00] LABS: MANUAL DIFF REFLEX YES
[2024-12-12] MEDS ORDERED: Levothyroxine Sodium 100 MCG TAB PO SCH (07:06)
[2024-12-12 07:22] LABS: MICROCYTOSIS SLIGHT; PLATELET SUFFICIENCY NORMAL (NORMAL); TOTAL CELLS COUNTED 100 #CELLS
[2024-12-12 07:23] LABS: POLYCHROMASIA SLIGHT; ROULEAUX SLIGHT
[2024-12-12 08:47] LABS: TOTAL PROTEIN 6.9 gm/dL (6.0-8.0)
[2024-12-12] MEDS ORDERED: ATENOLOL 50 MG TAB PO SCH (10:00)
[2024-12-12] MEDS ORDERED: FAMOTIDINE 20 MG TAB PO SCH (10:00)
[2024-12-12] MEDS ORDERED: ATORVASTATIN CALCIUM 10 MG TAB PO SCH (10:00)
[2024-12-12] MEDS ORDERED: Losartan Potassium 50 MG TAB PO SCH (10:00)
[2024-12-12] MEDS ORDERED: CITALOPRAM 20 MG TAB PO SCH (10:00)
[2024-12-12] MEDS ORDERED: busPIRone Hydrochloride 5 MG TAB PO SCH ×2 (10:00→14:37)
[2024-12-12] MEDS ORDERED: SODIUM CHLORIDE 0.9% 500 ML IV ONE (10:48)
[2024-12-12] MEDS ORDERED: BUDESONIDE 0.5 MG AMP NEB SCH (14:30)
[2024-12-12 16:32] LABS: BASO % 0.1 % (0.0-1.0); HEMATOCRIT 25.1 % (37.0-47.0); MEAN CORPUSCULAR HGB 21.4 pg (27.0-31.0); MEAN CORPUSCULAR HGB CONC 28.7 g/dl (33.0-37.0); MONO # 0.6 10*3/uL (0.1-1.0); MONO % 4.9 % (3.0-9.0); NEUT # 10.3 10*3/uL (2.3-7.9); NEUT % 89.1 % (47.0-73.0); PLATELET COUNT AUTOMATED 388 10*3/uL (130-400); RED BLOOD COUNT 3.36 10*6/uL (4.10-5.10); RED CELL DISTRI WIDTH 17.2 % (0-14.5); WHITE BLOOD COUNT 11.6 10*3/uL (4.8-10.8)
[2024-12-12 16:40] LABS: MEAN CELL VOLUME 74.7 fl (81.0-99.0)
[2024-12-12] MEDS ORDERED: Montelukast Sodium 10 MG TAB PO SCH (18:00)
[2024-12-13] VITALS: BP 107/42
[2024-12-13 03:42] LABS: MEAN CELL VOLUME 74.3 fl (81.0-99.0); MEAN CORPUSCULAR HGB CONC 29.6 g/dl (33.0-37.0); MEAN PLATELET VOLUME 8.5 fl (9.6-12.3); PLATELET COUNT AUTOMATED 399 10*3/uL (130-400); RED BLOOD COUNT 3.23 10*6/uL (4.10-5.10); RED CELL DISTRI WIDTH 17.2 % (0-14.5); RETICULOCYTE % 1.88 % (0.50-2.50); WHITE BLOOD COUNT 14.2 10*3/uL (4.8-10.8)
[2024-12-13 03:44] LABS: MANUAL DIFF REFLEX YES
[2024-12-13 04:23] LABS: BUN 30 mg/dl (9-23); CHLORIDE 107 mmol/L (98-107)
[2024-12-13 08:00] VITALS: BP 132/71
[2024-12-13 12:00] VITALS: BP 118/30
[2024-12-13 16:00] VITALS: BP 125/54
[2024-12-13] MEDS ORDERED: NA FERRIC GLUC CMPL/SUCROSE 62.5 MG/5 ML VIAL IV SCH (16:30)
[2024-12-13] MEDS ORDERED: Polyethylene Glycol 3350 17 GM PACKET PO SCH (16:50)
[2024-12-13 20:00] VITALS: BP 145/51
[2024-12-14] VITALS: BP 137/41
[2024-12-14 04:00] VITALS: BP 137/41
[2024-12-14 05:37] LABS: POTASSIUM 4.3 mmol/L (3.4-5.1)
[2024-12-14 06:25] LABS: BASO % 0.2 % (0.0-1.0); EOS % 0.2 % (1.0-4.0); HEMATOCRIT 26.3 % (37.0-47.0); MEAN CELL VOLUME 75.8 fl (81.0-99.0); MEAN CORPUSCULAR HGB 21.3 pg (27.0-31.0); MEAN CORPUSCULAR HGB CONC 28.1 g/dl (33.0-37.0); MEAN PLATELET VOLUME 8.4 fl (9.6-12.3); MONO % 8.2 % (3.0-9.0); NEUT # 7.1 10*3/uL (2.3-7.9); NEUT % 60.6 % (47.0-73.0); PLATELET COUNT AUTOMATED 456 10*3/uL (130-400); RED BLOOD COUNT 3.47 10*6/uL (4.10-5.10); RED CELL DISTRI WIDTH 17.4 % (0-14.5); WHITE BLOOD COUNT 11.6 10*3/uL (4.8-10.8)
[2024-12-14 06:43] LABS: BASO % 0.1 % (0.0-1.0); MONO # 0.9 10*3/uL (0.1-1.0); MONO % 6.2 % (3.0-9.0); NEUT # 12.2 10*3/uL (2.3-7.9)
[2024-12-14 08:00] VITALS: BP 140/47
[2024-12-14] MEDS ORDERED: FERREX 150150 MG PO (11:43)
== END 2024-12-14 12:34 | disposition home or self-care (01) | DRG 189 ==
LOC: ED 12:01 → EDHOLD 14:00 → ICCU 14:00
PROVIDERS: Emergency Medicine; Internal Medicine Critical Care Medicine; Surgery Trauma Surgery; ADMIT Internal Medicine; ATTEND Internal Medicine
PROC: 5A09357 Assistance with Respiratory Ventilation, Less than 24 Consecutive Hours, Continuous Positive Airway Pressure (ICD-10-PCS; 2024-12-11)
PROC: 30233N1 Transfusion of Nonautologous Red Blood Cells into Peripheral Vein, Percutaneous Approach (ICD-10-PCS; principal; 2024-12-12)
DX: J96.01 Acute respiratory failure with hypoxia (principal); J45.901 Unspecified asthma with (acute) exacerbation; F33.9 Major depressive disorder, recurrent, unspecified; J44.1 Chronic obstructive pulmonary disease with (acute) exacerbation; R71.0 Precipitous drop in hematocrit; I10 Essential (primary) hypertension; E03.9 Hypothyroidism, unspecified; F17.210 Nicotine dependence, cigarettes, uncomplicated; E78.2 Mixed hyperlipidemia; J43.2 Centrilobular emphysema; E78.00 Pure hypercholesterolemia, unspecified; Z20.822 Contact with and (suspected) exposure to COVID-19; F41.1 Generalized anxiety disorder; Z91.041 Radiographic dye allergy status; Z91.040 Latex allergy status; Z90.710 Acquired absence of both cervix and uterus; Z80.42 Family history of malignant neoplasm of prostate